=== PATIENT | male | born 1970 | race American Indian/Alaskan Native ===

== ENCOUNTER 2025-02-16 05:59 | Day surgery (SDC) | payer OTHER ==
[~2025-02-16 05:59] MED LIST: Propofol 200 MG/20 ML SDV ONE
[2025-02-16] MEDS: Lactated Ringers 1,000 ML IV SCH (06:28)
[2025-02-16] MEDS ORDERED: Propofol 200 MG/20 ML SDV ONE (08:17)
[2025-02-16 08:23] VITALS: BP 144/89; PULSE 52
== END 2025-02-16 08:21 | disposition home or self-care (01) ==
LOC: DL.SDS 05:59
PROVIDERS: ATTEND Internal Medicine Gastroenterology
DX: Z12.11 Encounter for screening for malignant neoplasm of colon (principal); D12.2 Benign neoplasm of ascending colon
CPT/HCPCS: 45385; J7120